=== PATIENT | female | born 1985 | race Caucasian/White ===

== ENCOUNTER 2018-02-27 06:26 | Inpatient (IN) | payer OTHER ==
[~2018-02-27] VITALS: Ht 162.6 cm; Wt 81.6 kg
[2018-02-27] MEDS ORDERED: PRENATAL TABLE1 EAC2 PO (09:47)
[2018-02-27] MEDS ORDERED: SYNTHROID125 MCG PO (09:48)
[2018-02-27] MEDS ORDERED: MAXFE CAPLET1 EACH PO (09:48)
[2018-03-01] MEDS ORDERED: DOCUSATE SODIU100 MG PO (11:36)
[2018-03-01] MEDS ORDERED: IBUPROFEN400 MG PO (11:36)
[2018-03-01] MEDS ORDERED: PREPLUS CA-FE1 EACH PO (11:36)
== END 2018-03-01 13:35 | DRG 807 ==
LOC: LDR 06:26 → SURG-SUITE 14:00
PROC: 10E0XZZ Delivery of Products of Conception, External Approach (ICD-10-PCS; principal; 2018-02-27)
PROC: 0W8NXZZ Division of Female Perineum, External Approach (ICD-10-PCS; 2018-02-27)
PROC: 3E033VJ Introduction of Other Hormone into Peripheral Vein, Percutaneous Approach (ICD-10-PCS; 2018-02-27)
PROC: 4A1HXCZ Monitoring of Products of Conception, Cardiac Rate, External Approach (ICD-10-PCS; 2018-02-27)
PROC: 4A033R1 Measurement of Arterial Saturation, Peripheral, Percutaneous Approach (ICD-10-PCS; 2018-02-27)
DX: O80 Encounter for full-term uncomplicated delivery (principal); Z37.0 Single live birth; Z3A.39 39 weeks gestation of pregnancy